=== PATIENT | female | born 1960 | race Caucasian/White ===

== ENCOUNTER → 2019-11-08 | Outpatient (CLI) | payer SELFPAY ==
[2019-11-08 12:25] LABS: Hemoglobin A1c 11.9 % (3.8-5.6)
[2019-11-08 12:51] LABS: Microalbumin:Creatinine Ratio 389.4 mg/g CRE (<30 mg/g CRE)
[2019-11-08 12:59] LABS: ALB/GLOB Ratio 0.9 RATIO (0.9-2.4); AST(SGOT) 15 U/L (15-37); Alanine Aminotransfer ALT/SGPT 35 U/L (13-56); Albumin, Serum 3.6 g/dL (3.2-5.0); Alkaline Phosphatase 84 U/L (45-117); Anion Gap 6 (5-15); BUN 17 mg/dL (7-18); BUN/Creat Ratio 21.7 RATIO (10-20); Calcium,Total 9.3 mg/dL (8.5-10.1); Chloride 106 mmol/L (98-107); Cholesterol 207 mg/dL (200); Creatinine, Serum 0.78 mg/dL (0.55-1.02); EST Glomerular Filtration Rate 80 mL/min (>60); Est Glom Filt Rate - Afr Amer 97 mL/min (>60); Glucose 307 mg/dL (74-106); High Density Lipoprotein 46 mg/dL; Potassium 4.6 mmol/L (3.5-5.1); Protein, Total 7.6 g/dL (6.4-8.2); Sodium Level 139 mmol/L (136-145); Thyroid Stim Hormone (TSH) 0.68 uIU/mL (0.358-3.74); Triglycerides 118 mg/dL; Very Low Density Lipoprotein 24 mg/dL (5-40)
[2019-11-08 13:54] LABS: Absolute Lymphocyte Count 2.42 X10^3/uL (0.83-4.51); Absolute Neutrophil Count 4.4 X10^3/uL (2.0-7.7); Basophil# 0.03 X10^3/uL; Basophil% 0.4 % (0-1); Eosinophil# 0.15 X10^3/uL; Hemoglobin 13.3 g/dL (12.0-15.0); Lymphocyte # 2.42 X10^3/ul (4.0); Lymphocyte % 32.4 % (19-41); Mean Corp Hgb Conc 33.3 g/dL (32-36); Mean Corpuscular Hgb 27.5 pg (27.0-32.0); Mean Corpuscular Volume 82.8 fL (81-99); Mean Platelet Vol. 10.6 fl (6.2-12.0); Monocyte# 0.47 X10^3/uL; Monocyte% 6.3 % (0-10); NRBC Flagged by Analyzer 0 % (0-5); Neutrophil # 4.38 X10^3/uL (2.7-7.7); Neutrophil % 58.6 % (47-70); Platelet Count 341 K/mm3 (150-450); RBC Distribution Width CV 12.1 % (11.6-14.6); Red Blood Count 4.83 M/mm3 (4.2-5.4); White Blood Count 7.5 K/mm3 (4.4-11.0)
== END | disposition home or self-care (01) ==
LOC: MFPLAB 10:06
PROVIDERS: PCP Family Medicine; Visit Provider Family Medicine
DX: E78.5 Hyperlipidemia, unspecified (principal); E11.65 Type 2 diabetes mellitus with hyperglycemia; I10 Essential (primary) hypertension
CPT/HCPCS: 36415; 80053; 80061; 82043; 82570; 83036; 84443; 85025

== ENCOUNTER 2020-10-05 14:59 | Emergency (ER) | payer OTHER, SELFPAY ==
[2020-10-05 13:35] VITALS: BMI 40.4
[2020-10-05 15:00] VITALS: BP 137/73; PULSE 110; RESP 15; TEMP 35.9; O2SAT 97; BMI 41.8
[2020-10-05 16:20] LABS: Absolute Lymphocyte Count 3.21 X10^3/uL (0.83-4.51); Absolute Neutrophil Count 7.1 X10^3/uL (2.0-7.7); Basophil# 0.03 X10^3/uL; Basophil% 0.3 % (0-1); Eosinophil# 0.06 X10^3/uL; Eosinophils% 0.5 % (0-5); Hematocrit 44.2 % (37-47); Hemoglobin 14.8 g/dL (12.0-15.0); Lymphocyte # 3.21 X10^3/ul (0.83-4.51); Lymphocyte % 28.8 % (19-41); Mean Corp Hgb Conc 33.5 g/dL (32-36); Mean Corpuscular Hgb 27.9 pg (27.0-32.0); Mean Corpuscular Volume 83.2 fL (81-99); Mean Platelet Vol. 9.2 fl (6.2-12.0); Monocyte# 0.68 X10^3/uL; Monocyte% 6.1 % (0-10); NRBC Flagged by Analyzer 0 % (0-5); Neutrophil # 7.13 X10^3/uL (2.7-7.7); Platelet Count 409 K/mm3 (150-450); RBC Distribution Width SD 36.6 fl (35.1-43.9); Red Blood Count 5.31 M/mm3 (4.2-5.4); White Blood Count 11.1 K/mm3 (4.4-11.0)
[2020-10-05 16:34] LABS: ALB/GLOB Ratio 0.9 RATIO (0.9-2.4); AST(SGOT) 8 U/L (15-37); Alanine Aminotransfer ALT/SGPT 28 U/L (13-56); Albumin, Serum 4.1 g/dL (3.2-5.0); Alkaline Phosphatase 88 U/L (45-117); Anion Gap 9 (5-15); BUN 30 mg/dL (7-18); BUN/Creat Ratio 27.3 RATIO (10-20); Calcium,Total 9.7 mg/dL (8.5-10.1); Chloride 101 mmol/L (98-107); EST Glomerular Filtration Rate 54 mL/min (>60); Est Glom Filt Rate - Afr Amer 65 mL/min (>60); Estimated Creatinine Clearance 43.55 ml/min; Globulin 4.7 g/dL (2.2-4.2); Glucose 197 mg/dL (74-106); Lipase 54 U/L (73-393); Potassium 3.5 mmol/L (3.5-5.1); Protein, Total 8.8 g/dL (6.4-8.2); Sodium Level 137 mmol/L (136-145)
[2020-10-05] MEDS: 0.9% Normal Saline 1,000 ML 1000 ML IV (16:35)
[2020-10-05] MEDS: Ondansetron 4 MG/2 ML Vial IV (16:35)
[2020-10-05 16:40] VITALS: BP 145/80; BP 152/65; BP 172/87; PULSE 100; PULSE 113; PULSE 116
--- NOTE | 2020-10-05 16:40 | ED.VIS.GI ---
HPI HPI - GI History of Present Illness Chief Complaint: Nausea/Vomiting/Diarrhea Narrative Narrative: Patient reports that she has vomiting and diarrhea that began 2 days ago. States she is vomited multiple times. Last episode was at 3:00 this morning. No blood in her emesis. No coffee-ground emesis. She reports that she had 4 episodes of diarrhea today. No blood in her stools or black tarry stools. Patient denies any abdominal pain. No dysuria or frequency. She does report she had a poor appetite over the past 2 days. She does drink well water, but others do at home as well and they are not ill. No sick contacts. Has not been camping out of the country. No possible bad food exposure. She is not been on antibiotics in the past couple of months. Patient reports that she is lightheaded and it increases with standing. She has not passed out. She was seen in urgent care and told him that she has bilateral upper extremity numbness that comes and goes and resolves when I cover up. Because of that they were concerned about the possibility of a stroke in the center of the [facility] department for evaluation. [facility] Medical History Anxiety Diabetes Difficulty balancing when standing HTN (hypertension) Neck pain Home Medications alprazolam 1 mg tablet 1 mg PO DAILY 10/05/20 [History Last Taken Unknown] amlodipine 5 mg tablet 5 mg PO DAILY 10/05/20 [History Last Taken Unknown] glipizide 5 mg-metformin 500 mg tablet 1 tab PO DAILY 10/05/20 [History Last Taken Unknown] lisinopril 20 mg tablet 20 mg PO DAILY 10/05/20 [History Last Taken Unknown] metoprolol succinate 50 mg tablet,extended release 24 hr 50 mg PO DAILY 10/05/20 [History Last Taken Unknown] ondansetron 4 mg PO Q8H PRN #10 tab 10/05/20 [Rx Last Taken Unknown] vsdr enzymes PO 10/05/20 [History Last Taken Unknown] Allergy/AdvReac Type Severity Reaction Status Date / Time No Known Allergies Allergy Unverified 10/05/20 15:05 Social History Smoking Status: Never smoker alcohol intake: never ROS ROS ED Constitutional Constitutional ED: Denies chills, fever(s) or sweats Eyes Eyes: Denies change in vision ENT ENT ED: Denies sore throat Cardiovascular Cardiovascular: Denies chest pain Respiratory/Chest Respiratory/Chest: Denies cough, dyspnea or dyspnea on exertion Gastrointestinal Gastrointestinal: Reports diarrhea, nausea and vomiting; Denies abdominal pain or melena Genitourinary Genitourinary ED: Denies dysuria or urinary frequency Musculoskeletal Musculoskeletal: Denies myalgias Integumentary Denies rash Neurologic Neurologic: Denies headache(s), paresthesias or weakness EXAM Physical Exam Const Vital Signs: 10/05/20 15:00 10/05/20 16:40 Temperature 96.6 F L Temperature Source Temporal Pulse Rate 110 H Pulse Rate [Lying] 100 Pulse Rate [Sitting] 113 H Pulse Rate [Standing] 116 H Respiratory Rate 15 Blood Pressure 137/73 H Blood Pressure [Lying] 152/65 H Blood Pressure [Sitting] 172/87 H Blood Pressure [Standing] 145/80 H Blood Pressure Mean 94 Blood Pressure Mean [Lying] 94 Blood Pressure Mean [Sitting] 115 Blood Pressure Mean [Standing] 101 Pulse Ox 97 Oxygen Delivery Method Room Air Positive well nourished and well developed General Appearance ED: well developed HEENT Reports normocephalic and head/scalp atraumatic Eyes PERRL Neck no lymphadenopathy, supple and no JVD General: Negative for tenderness Resp normal respiratory effort and clear to auscultation bilaterally Cardio regular rate, regular rhythm and no murmurs GI normal to inspection, nondistended, normoactive bowel sounds, non-tender and non-distended GI Narrative: No guarding, rebound, or peritoneal signs. Auscultation: normoactive bowel sounds Palpation: soft Back/Spine Back/Spine Narrative: Nontender. Extremity General Extremety ED: Negative for edema or tenderness General Extremity: Negative for edema Neuro oriented x3, CN's II-XII intact bilaterally and no sensory deficits noted Neuro Narrative: NIH scale is 0. Sensorium / Orientation: alert Motor Exam: strength 5/5 throughout Psych mental status grossly normal Skin no rashes or lesions noted [facility] Lab Data Labs: Laboratory Results - last 24 hr 10/05/20 10/05/20 16:15 16:15 WBC 11.1 H RBC 5.31 Hgb 14.8 Hct 44.2 MCV 83.2 MCH 27.9 MCHC 33.5 RDW Std Deviation 36.6 RDW Coeff of Manolo 12.0 Plt Count 409 MPV 9.2 Immature Gran % (Auto) 0.300 Neut % (Auto) 64.0 Lymph % (Auto) 28.8 [place] % (Auto) 6.1 Eos % (Auto) 0.5 Baso % (Auto) 0.3 Absolute Neuts (auto) 7.1 Absolute Lymphs (auto) 3.21 Nucleated RBC % 0 Sodium 137 Potassium 3.5 Chloride 101 Carbon Dioxide 27.0 Anion Gap 9 BUN 30 H Creatinine 1.10 H Estim Creat Clear Calc 43.55 Est GFR (MDRD) Af Amer 65 Est GFR (MDRD) Non-Af 54 L BUN/Creatinine Ratio 27.3 H Glucose 197 H Calcium 9.7 Total Bilirubin 0.60 AST 8 L ALT 28 Alkaline Phosphatase 88 Total Protein 8.8 H Albumin 4.1 Globulin 4.7 H Albumin/Globulin Ratio 0.9 Lipase 54 L Treatment and Re-Evaluation Comments:: Emergency department course: Patient's NIH scale is 0. I had a prolonged discussion with her about her neurologic symptoms. She has bilateral paresthesias that go away when she covers up. She denies any vertigo. I discussed her that this does not sound like a stroke and she agrees with this. She does not want a CT of the head or stroke work-up undertaken. Patient had an IV placed. She is given a liter normal saline. She was given Zofran IV. She is resting comfortably. Treatment plan: Patient will be discharged with Zofran. Instructed to push fluids. Follow-up her primary care physician in 1 to 2 days if not improving. Return to the emergency department for any worsening symptoms. Disposition: To home in improved and stable condition. Discharge Plan Triage Chief Complaint: Nausea/Vomiting/Diarrhea ED Provider: Brad Lopez Dx/Rx/DC Orders Clinical Impression: Nausea, vomiting, and diarrhea Prescriptions: New ondansetron 4 mg tablet,disintegrating 4 mg PO Q8H PRN (Reason: nausea and vomiting) Qty: 10 RF: 0 No Action metoprolol succinate 50 mg tablet extended release 24 hr 50 mg PO DAILY RF: 0 amlodipine 5 mg tablet 5 mg PO DAILY RF: 0 lisinopril 20 mg tablet 20 mg PO DAILY RF: 0 glipizide-metformin 5-500 mg tablet 1 tab PO DAILY RF: 0 alprazolam 1 mg tablet 1 mg PO DAILY RF: 0 vsdr enzymes PO RF: 0 Primary Care Provider: Hunter Gruber Referrals: Hunter Gruber MD [Primary Care Provider] - 1-2 Days if not improving Disposition Disposition: Home, self care Discharge Date/Time: 10/05/20 17:48
== END 2020-10-05 17:48 | disposition home or self-care (01) ==
LOC: ED 16:37
PROVIDERS: Emergency Provider Emergency Medicine; PCP Family Medicine
DX: R11.2 Nausea with vomiting, unspecified (principal); R19.7 Diarrhea, unspecified; R20.2 Paresthesia of skin; I10 Essential (primary) hypertension; E11.9 Type 2 diabetes mellitus without complications; F41.9 Anxiety disorder, unspecified; Z79.84 Long term (current) use of oral hypoglycemic drugs; Z79.899 Other long term (current) drug therapy
CPT/HCPCS: 80053; 83690; 85025; 96361; 96374; 99285; A4216; J2405